=== PATIENT | male | born 1995 | race Two or more races ===

== ENCOUNTER 2019-01-10 13:22 | Emergency (ER) | payer SELFPAY ==
[~2019-01-10] VITALS: Ht 175.3 cm; Wt 122.5 kg
[~2019-01-10 13:22] MED LIST: CLINDAMYCIN HC150 MG ORAL; IBUPROFEN600 MG ORAL; NKM
[2019-01-10 13:30] VITALS: BP 135/83
--- NOTE | 2019-01-10 13:36 | NUR ---
ED Nurse Note: Patient presents to ER due to rash on BUE, near axilla area. Ring-like rash with redness, dry on LUE and multiple red, raised area on RUE noted without drainage x 1 week. Patient awake, alert, oriented x 4. Regular, unlabored breathing noted.
--- NOTE | 2019-01-10 14:01 | Emergency Room Report ---
History of Present Illness General Chief Complaint: Skin Rash/Abscess Source: Patient Present Illness HPI 23-year-old male presents to the emergency department complaining of nonpainful itchy rash to the bilateral axilla with progression and a circular appearance x1 week. Pt. denies fevers, chills or swollen tender lymph nodes. Denies lesions/rashes elsewhere on the body. Denies new medications or body washes or creams. Denies swelling of the lips, tongue , throat or airway. Denies wheezing , or shortness of breath. Denies recent travel, recent illness or ill contacts. denies blisters, oral lesions, or sloughing of the skin Allergies: Coded Allergies: No Known Allergies (Unverified , 07/13/13) Nursing Documentation-[facility] Past Medical History: No Stated History Hx Hypertension: Yes Review of Systems All Other Systems: negative except mentioned in HPI Physical Exam Vital Signs Date Time Temp Pulse Resp B/P (MAP) Pulse Ox O2 Delivery O2 Flow Rate FiO2 01/10/19 13:30 98.1 91 19 135/83 (100) 98 Room Air Sp02 EP Interpretation: reviewed, normal General Appearance: no apparent distress, alert, GCS 15, non-toxic Head: normocephalic, atraumatic Eyes: bilateral eye normal inspection, bilateral eye PERRL ENT: hearing grossly normal, no angioedema, normal voice Neck: full range of motion Respiratory: chest non-tender, lungs clear, normal breath sounds, no wheezing, speaking full sentences Cardiovascular #1: regular rate, rhythm Musculoskeletal: back normal, gait/station normal, normal range of motion, non- tender Neurologic: alert, oriented x3, responsive, motor strength/tone normal, sensory intact, speech normal, grossly normal Psychiatric: judgement/insight normal Skin: rash - annular erythematous lesions in bilateral axilla. no blisters or vesicles. Lymphatic: no adenopathy Medical Decision Making PA Attestation Dr. Veliz is my supervising Physician whom patient management has been discussed with. Diagnostic Impression: Primary Impression: Rash and other nonspecific skin eruption ER Course 23-year-old male presents to the emergency department complaining of nonpainful itchy rash to the bilateral axilla with progression and a circular appearance x1 week. Pt. denies fevers, chills or swollen tender lymph nodes. Denies lesions/rashes elsewhere on the body. Denies new medications or body washes or creams. Denies swelling of the lips, tongue , throat or airway. Denies wheezing , or shortness of breath. Denies recent travel, recent illness or ill contacts. denies blisters, oral lesions, or sloughing of the skin Ddx considered but are not limited to cellulitis, scabies, shingles, varicella, dermatitis, urticaria, eczema, tinea, viral exanthem, SJS Vital signs: are WNL, pt. is afebrile H&PE are most consistent with Dermatitis vs. fungal ORDERS: none required at this time, the diagnosis is clinical ED INTERVENTIONS: None required at this time. DISCHARGE: At this time pt. is stable for d/c to home. Will provide printed patient care instructions, and any necessary prescriptions. Care plan and follow up instructions have been discussed with the patient prior to discharge. Last Vital Signs Date Time Temp Pulse Resp B/P (MAP) Pulse Ox O2 Delivery O2 Flow Rate FiO2 01/10/19 13:30 98.1 19 135/83 98 Room Air 01/10/19 13:30 91 Disposition: HOME, SELF-CARE Condition: Stable Patient Instructions: Rash Additional Instructions: Take medications as directed. Follow up with a Primary Care Provider in 3-5 days for DERMATOLOGY REFERRAL , even if your symptoms have resolved. --Please review list of primary care clinics, if you do not already have a primary care provider Return sooner to ED if new symptoms occur, or current symptoms become worse. - Please note that this Emergency Department Report was dictated using [employer] helper technology software, occasionally this can lead to erroneous entry secondary to interpretation by the dictation equipment. Indigo No Jan 10, 2019 14:01
[2019-01-10] MEDS ORDERED: KENALOG 0.025%15 GM APPLIC (14:03)
[2019-01-10] MEDS ORDERED: NIZORAL 2% C1 APPLIC TOPIC (14:03)
[2019-01-10 14:08] VITALS: BP 135/79
--- NOTE | 2019-01-10 14:10 | NUR ---
ER DISCHARGE NOTE: Patient is cleared to be discharged per ERMD, pt is aox4, on room air, with stable vital signs. pt was given dc and prescription instructions, pt was able to verbalize understanding, pt id band removed. pt is able to ambulate with steady gait. pt took all belongings.
== END 2019-01-10 14:10 | disposition home or self-care (01) ==
LOC: EMR 14:05
DX: R21 Rash and other nonspecific skin eruption (principal); I10 Essential (primary) hypertension
CPT/HCPCS: 99281